=== PATIENT | female | born 1990 | race Hispanic/Latino ===

== ENCOUNTER 2021-08-26 16:31 | Day surgery (SDC) | payer MEDICAID, SELFPAY ==
[2021-08-26] MEDS ORDERED: PROPOFOL 20 ML ONE (16:51)
[2021-08-26] MEDS ORDERED: Fentanyl 100 MCG/2 ML VIAL ONE ×2 (16:52→18:31)
[2021-08-26] MEDS ORDERED: Midazolam HCl 2 mg/2 ml Vial ONE (16:52)
[2021-08-26] MEDS ORDERED: Ketorolac Tromethamine 30 MG/ML VIAL ONE (16:53)
[2021-08-26] MEDS ORDERED: Lidocaine 2% PF 5 ML VIAL ONE (16:53)
[2021-08-26] MEDS ORDERED: Rocuronium Bromide 10 MG/ML (10ML VIAL) ONE (16:54)
[2021-08-26] MEDS ORDERED: Dexamethasone 20 MG/5 ML VIAL ONE (16:54)
[2021-08-26] MEDS ORDERED: Ondansetron PF 4 MG/2 ML Vial ONE ×2 (16:54→18:31)
[2021-08-26] MEDS ORDERED: EPINEPHrine 1 MG/ML AMP ONE (17:01)
[2021-08-26] MEDS ORDERED: Bupivacaine PF 0.5% 30 ML VIAL ONE (17:02)
[2021-08-26] MEDS ORDERED: Silver Nitrate Application 1 EACH TOP SCH (17:15)
[2021-08-26] MEDS ORDERED: Glycopyrrolate 0.2 MG/ML 5 ML SYRINGE ONE (18:20)
[2021-08-26] MEDS ORDERED: Meperidine HCl/PF 25 MG/ML VIAL ONE (18:39)
== END 2021-08-26 20:25 | disposition home or self-care (01) ==
LOC: CSHSDC 16:31
PROVIDERS: ATTEND Obstetrics & Gynecology
PROC: 0U914ZZ Drainage of Left Ovary, Percutaneous Endoscopic Approach (ICD-10-PCS; principal; 2021-08-26)
PROC: 0U1 Female Reproductive System, Bypass (ICD-10-PCS; principal; 2021-08-26)
DX: N83.8 Other noninflammatory disorders of ovary, fallopian tube and broad ligament (principal); N83.202 Unspecified ovarian cyst, left side; R73.03 Prediabetes; Z79.84 Long term (current) use of oral hypoglycemic drugs
CPT/HCPCS: 86850; 86900; 86901; J0171; J0690; J1100; J1885; J2001; J2175; J2250; J2405; J2704; J3010; S0020

== ENCOUNTER 2022-07-18 16:28 | Day surgery (SDC) | payer SELFPAY ==
[2022-07-18 17:39] VITALS: BMI 37.8
[2022-07-18] MEDS ORDERED: hydrALAZINE 20 MG/ML VIAL SLOW IVP PRN (17:57)
[2022-07-18] MEDS ORDERED: Sodium Chloride 0.9% 1,000 ML IV SCH (18:00)
[2022-07-18 18:55] LABS: #Eosinphils 0.1 10x3/uL (0.0-0.5); #Monocytes 0.7 10x3/uL (0.0-1.1); #Neutrophils 7.9 10x3/uL (1.5-8.4); %Basophils 0.2 % (0.0-2.0); %Eosinophils 0.7 % (0.0-6.0); %Lymphocytes 22.3 % (18.0-47.0); %Monocytes 5.8 % (0.0-10.0); %Neutrophils 70.6 % (40.0-75.0); Hemoglobin 11.2 g/dL (12.0-15.5); Mean Corpuscular HGB CONC 33.4 g/dL (32.0-36.0); Mean Corpuscular Hemoglobin 28.9 pg (27.0-33.0); Mean Corpuscular Volume 86.3 fl (81.6-98.3); Mean Platelet Volume 11.9 fl (7.4-10.4); Platelet Count 238 10x3/uL (150-450); RBC Distribution Width 12.7 % (11.5-14.5); Red Blood Cell (RBC) Count 3.88 10x6/uL (3.90-5.03); White Blood Cell (WBC) Count 11.1 10x3/uL (3.5-10.5)
[2022-07-18 19:04] LABS: Anion Gap 14 mmol/L (10-20); BUN (Urea Nitrogen) 8 mg/dL (7.0-18.7); Calc. Creatinine Clearance 246 mL/min (70-130); Calcium 9.1 mg/dL (7.8-10.44); Carbon Dioxide 18 mmol/L (22-29); Chloride 109 mmol/L (98-107); Estimated GFR 130; Glucose 104 mg/dL (70-105); Sodium 137 mmol/L (136-145)
== END 2022-07-18 19:40 | disposition home or self-care (01) ==
LOC: CSHLD/OP 16:28
PROVIDERS: ATTEND Obstetrics & Gynecology
DX: O26.893 Other specified pregnancy related conditions, third trimester (principal); R42 Dizziness and giddiness; O24.913 Unspecified diabetes mellitus in pregnancy, third trimester; Z3A.36 36 weeks gestation of pregnancy; Z79.84 Long term (current) use of oral hypoglycemic drugs; Z79.899 Other long term (current) drug therapy; Z98.890 Other specified postprocedural states
CPT/HCPCS: 36415; 80048; 85025; 93005; 93010; 99283

== ENCOUNTER 2022-07-28 05:59 | Inpatient (IN) | payer SELFPAY ==
[2022-07-28 06:33] VITALS: BMI 38.4
[2022-07-28] MEDS ORDERED: Ondansetron PF 4 MG/2 ML Vial IVP PRN ×3 (07:00→15:30)
[2022-07-28] MEDS ORDERED: hydrALAZINE 20 MG/ML VIAL SLOW IVP PRN ×2 (07:00→15:30)
[2022-07-28] MEDS ORDERED: Methylergonovine 0.2 MG/ML VIAL IM PRN (07:00)
[2022-07-28] MEDS ORDERED: Carboprost 250 MCG/ML AMP IM PRN (07:00)
[2022-07-28] MEDS ORDERED: Diphenoxylate HCl/Atropine Tablet PO PRN ×2 (07:00)
[2022-07-28] MEDS ORDERED: Ibuprofen 800 MG TAB PO PRN (07:00)
[2022-07-28] MEDS ORDERED: Lidocaine 1% (PF) 30 ML VIAL SC PRN (07:00)
[2022-07-28] MEDS ORDERED: Promethazine HCl 25 MG/ML VIAL IM PRN ×3 (07:00→15:30)
[2022-07-28] MEDS ORDERED: NS w/ Oxytocin 30 units 500 ML IVPB SCH (07:00)
[2022-07-28] MEDS ORDERED: Misoprostol 200 MCG TAB RC PRN (07:00)
[2022-07-28] MEDS ORDERED: NS w/ Oxytocin 30 units 500 ML IV SCH ×2 (07:00→15:30)
[2022-07-28 08:09] LABS: Hemoglobin 11.3 g/dL (12.0-15.5); Mean Corpuscular HGB CONC 33.5 g/dL (32.0-36.0); Mean Corpuscular Hemoglobin 28.8 pg (27.0-33.0); Mean Corpuscular Volume 85.8 fl (81.6-98.3); Mean Platelet Volume 11.7 fl (7.4-10.4); Platelet Count 227 10x3/uL (150-450); RBC Distribution Width 12.7 % (11.5-14.5); Red Blood Cell (RBC) Count 3.93 10x6/uL (3.90-5.03); White Blood Cell (WBC) Count 10.5 10x3/uL (3.5-10.5)
[2022-07-28 08:49] LABS: Glucose 114 mg/dL (70-105)
[2022-07-28 09:33] LABS: Syphilis Antibody Nonreactive (Nonreactive); Syphilis Antibody Index 0.11 S/CO (<1.00 Non-Reactive)
[2022-07-28 09:35] LABS: HBSAg Index 0.13 S/CO (0-0.99); Hep B Surf Ag Non-Reactive S/CO (NonReactive)
[2022-07-28] MEDS ORDERED: Fentanyl 2 mcg/Bup 0.1% Cadd 100 ML ONE (10:49)
[2022-07-28] MEDS ORDERED: Lactated Ringer's 500 ML IV PRN (11:20)
[2022-07-28] MEDS ORDERED: diphenhydrAMINE 50 MG/ML VIAL IVP PRN (11:20)
[2022-07-28] MEDS ORDERED: Acetaminophen 325 MG TAB PO PRN (11:20)
[2022-07-28] MEDS ORDERED: ePHEDrine Sulfate 50 MG/10 ML VIAL SLOW IVP PRN (11:20)
[2022-07-28] MEDS ORDERED: Naloxone HCl 0.4 mg/ml Vial IVP PRN ×2 (11:20)
[2022-07-28] MEDS ORDERED: Moisturizing Cream (Eucerin) 113 GM JAR TOP PRN (11:20)
[2022-07-28] MEDS ORDERED: Communication Order-Pharmacy FS SCH (11:30)
[2022-07-28] MEDS ORDERED: Fentanyl 2 mcg/Bupivacaine 0.1% Cassette 100 ML EPIDURAL SCH (11:30)
[2022-07-28] MEDS ORDERED: Bupivacaine 0.25% HCL 30 ML VIAL ONE (14:00)
[2022-07-28] MEDS ORDERED: Zolpidem Tartrate 5 MG TAB PO PRN (15:30)
[2022-07-28] MEDS ORDERED: Preparation H Ointment 28 GM TUBE PR PRN (15:30)
[2022-07-28] MEDS ORDERED: Bisacodyl 10 MG SUPP PR PRN (15:30)
[2022-07-28] MEDS ORDERED: Misoprostol 200 MCG TAB VAG PRN (15:30)
[2022-07-28] MEDS ORDERED: diphenhydrAMINE 25 MG CAP PO PRN (15:30)
[2022-07-28] MEDS ORDERED: Benzocaine-Menthol 82.5 ML CAN TOP PRN (15:30)
[2022-07-28] MEDS ORDERED: Lanolin Ointment 7 GM TUBE TOP PRN (15:30)
[2022-07-28] MEDS ORDERED: Milk Of Magnesia 30 ML UDCUP PO PRN (15:30)
[2022-07-28] MEDS: Ibuprofen 800 MG TAB PO SCH (15:48)
[2022-07-28] MEDS ORDERED: Measles/Mumps/Rubella 10 MCG/0.5 ML VIAL SC ONE (16:00)
[2022-07-28] MEDS ORDERED: Varicella virus, LIVE 0.5 ML VIAL SC ONE (16:00)
[2022-07-28] MEDS ORDERED: Boostrix 0.5 ML (Tdap) VIAL (>/=7 yrs of age) IM ONE (16:00)
[2022-07-28] MEDS: Ferrous Sulfate 325 MG TAB PO SCH (17:06)
[2022-07-28] MEDS ORDERED: Calcium Carbonate 500 MG ChewTAB PO PRN (22:01)
[2022-07-28] MEDS ORDERED: Simethicone Chewable 80 MG TAB PO PRN (23:52)
[2022-07-29] MEDS: Ibuprofen 800 MG TAB PO SCH ×3 (00:01→16:03)
[2022-07-29] MEDS: HYDROcodone/Acetaminophen 5/325 mg Tablet PO PRN ×3 (00:01→12:36)
[2022-07-29 05:09] LABS: Hemoglobin 10.8 g/dL (12.0-15.5); Mean Corpuscular HGB CONC 32.8 g/dL (32.0-36.0); Mean Corpuscular Hemoglobin 28.9 pg (27.0-33.0); Mean Platelet Volume 11.8 fl (7.4-10.4); Platelet Count 213 10x3/uL (150-450); RBC Distribution Width 12.8 % (11.5-14.5); Red Blood Cell (RBC) Count 3.74 10x6/uL (3.90-5.03); White Blood Cell (WBC) Count 11.5 10x3/uL (3.5-10.5)
[2022-07-29] MEDS: Docusate 100 MG CAP PO SCH ×2 (06:00→08:21)
[2022-07-29] MEDS: Ferrous Sulfate 325 MG TAB PO SCH ×2 (08:24→18:23)
[2022-07-29] MEDS ORDERED: Prenatal Vitamin 1 TAB PO SCH (09:00)
[2022-07-29 16:51] VITALS: BP 127/67; TEMP 98.6
== END 2022-07-29 18:15 | disposition home or self-care (01) | DRG 807 ==
LOC: CSHLD 05:59 → CSHPP 14:45
PROVIDERS: ADMIT Obstetrics & Gynecology; ATTEND Obstetrics & Gynecology
PROC: 10E0XZZ Delivery of Products of Conception, External Approach (ICD-10-PCS; principal; 2022-07-28)
DX: O24.425 Gestational diabetes mellitus in childbirth, controlled by oral hypoglycemic drugs (principal); Z37.0 Single live birth; Z3A.38 38 weeks gestation of pregnancy; E66.9 Obesity, unspecified; O99.214 Obesity complicating childbirth; Z79.84 Long term (current) use of oral hypoglycemic drugs
CPT/HCPCS: 36415; 51702; 82947; 85027; 86780; 86850; 86900; 86901; 87340; 93005; 93010; J2405; J2590; S0020